=== PATIENT | female | born 1955 | race Caucasian/White ===

== ENCOUNTER 2023-03-16 06:35 | Observation (INO) ==
--- NOTE | 2023-02-15 13:13 | PAT Medication Instructions ---
Medication Instructions Date of Service February 15, 2023 Home Medications Lactobacillus acidophilus 10 billion cell capsule (Probiotic) 10,000 mmu cells PO DAILY Mintran 1 dose PO QAM ascorbic acid (vitamin C) 500 mg tablet (Vitamin C) 500 mg PO DAILY cyclobenzaprine 10 mg tablet 10 mg PO HS PRN Muscle Spasm famotidine 40 mg tablet 40 mg PO QAM ibuprofen 200 mg capsule (Advil Liqui-Gel) 200 mg PO Q6H PRN Pain meloxicam 15 mg tablet 15 mg PO QAM turmeric 400 mg capsule 400 mg PO DAILY MEDICATION INSTRUCTIONS: ASK your surgeon for instructions meloxicam 15 mg tablet 15 mg PO QAM ibuprofen 200 mg capsule (Advil Liqui-Gel) 200 mg PO Q6H PRN Pain STOP taking 2 weeks before surgery Mintran 1 dose PO QAM turmeric 400 mg capsule 400 mg PO DAILY DO NOT take the morning of surgery Lactobacillus acidophilus 10 billion cell capsule (Probiotic) 10,000 mmu cells PO DAILY ascorbic acid (vitamin C) 500 mg tablet (Vitamin C) 500 mg PO DAILY Take morning of surgery With a small sip of water, OTHERWISE NOTHING TO EAT OR DRINK AFTER MIDNIGHT: famotidine 40 mg tablet 40 mg PO QAM Take evening before surgery cyclobenzaprine 10 mg tablet 10 mg PO HS PRN Muscle Spasm Other Notes If you have any questions please call us at [phone] or [phone] or [phone] or [phone]
--- NOTE | 2023-02-22 10:35 | Anesthesiology Consultation ---
Date of Service February 22, 2023 Assessment & Plan (1) Encounter for pre-operative examination: - Infectious disease screening: Per assessment on 02/22/23: No known infectious disease contacts or current infectious disease symptoms. No noted recent Covid positive test result. - Outpatient joint assessment: Pt currently scheduled for inpatient pathway. If surgeon requests review for outpatient joint pathway, patient is an acceptable candidate for outpatient joint program from anesthesia standpoint pending surgeon's office assessment that patient is motivated, has good support and completes [facility] Program preop requirements. Chart Review Chart Review: Acceptable Risk for Surgery and Patient seen in Pre Admission Testing Teaching & Discussion Pre-Anesthesia Teaching/Discussion Notes: Instructed NPO after midnight before surgery,except medications with 15 cc of water. Medication instructions provided according to the PAT guidelines. History Surgery Operation Date: 03/16/23 07:00 Proposed Procedures p Right Total Hip Arthroplasty - Maycol Santiago MD Height/Weight Height: 5 ft 6 in Weight: 73.5 kg Allergies Allergy/AdvReac Type Severity Reaction Status Date / Time No Known Allergies Allergy Verified 02/15/23 09:35 Medications Home Medications Medication Instructions Recorded Confirmed Last Taken Lactobacillus acidophilus 10 10,000 mmu cells PO DAILY 02/15/23 02/15/23 Unknown billion cell capsule (Probiotic) Mintran 1 dose PO QAM 02/15/23 02/15/23 Unknown ascorbic acid (vitamin C) 500 mg 500 mg PO DAILY 02/15/23 02/15/23 Unknown tablet (Vitamin C) cyclobenzaprine 10 mg tablet 10 mg PO HS PRN Muscle Spasm 02/15/23 02/15/23 Unknown ibuprofen 200 mg capsule (Advil 200 mg PO Q6H PRN Pain 02/15/23 02/15/23 Unknown Liqui-Gel) meloxicam 15 mg tablet 15 mg PO QAM 02/15/23 02/15/23 Unknown turmeric 400 mg capsule 400 mg PO DAILY 02/15/23 02/15/23 Unknown omeprazole 40 mg capsule,delayed 40 mg PO DAILY 02/22/23 02/22/23 Unknown release Past Medical History Medical History GERD (gastroesophageal reflux disease) Hip arthritis Exercise / Class Metabolic Activity II 4-5 Yardwork/Stairs/Walk up hill (one FS (no CP, no SOB)) Past Family History Family History Other No family history of adverse response to anesthesia Past Surgical History Surgical History History of toe surgery Left toe surgery (bunion/hammertoe repairs) Hx of hysterectomy Past Anesthesia History No Hx of Anesthesia Complications and No Family Hx of Anesthesia Complications History of PONV No Hx of PONV and No Hx of Motion Sickness Social History Smoking Status: Current some day smoker Smoking cigarettes per day: "social smoker" advised Do You Dip or Chew Tobacco: No Hx Alcohol Use: Yes (once per week) Hx Substance Use: No substance use type: does not use Review of Systems Patient denies chest pain, shortness of breath, dyspnea on exertion, fever, chills, cough, wheezing, palpitations. Physical Exam Vital Signs VITALS BP 118/80 P 85 TEMP 98.1 SP02 96%RA RESP 18 PHYSICAL Full cervical extension range of motion. Full TMJ range of motion. TMD 3 finger breaths Mallampati Score 1 Dentition: intact, + upper front bridge Lungs: clear throughout to auscultation Cardiac: regular rate and rhythm, no murmurs noted Spine: normal Carotid arteries: negative bruit Extremities: no LE edema Lab Results Anesthesia Preop Results Results Anesthesia Widget: WBC 4.47 K/ul (4.8-10.8) L 02/22/23 Hgb 14.9 g/dl (12.0-16.0) 02/22/23 Hct 42.1 % (37.0-47.0) 02/22/23 Plt 252 K/uL (130-400) 02/22/23 Na 138 mmol/L (136-145) 02/22/23 K 3.7 mmol/L (3.5-5.1) 02/22/23 Cl 104 mmol/L (98-107) 02/22/23 CO2 26 mmol/L (21-32) 02/22/23 BUN 14 mg/dl (6-23) 02/22/23 Creat 0.86 mg/dl (0.6-1.2) 02/22/23 Glucose Level 115 mg/dl (70-99(Fasting)) H 02/22/23 PT 10.9 Seconds (9.0-12.0) 02/22/23 PTT 27 Seconds (21-31) 02/22/23 INR 1.0 (0.9-1.1) 02/22/23 Blood Type AB Positive 02/22/23 Antibody Screen NEGATIVE 02/22/23 Testing Electrocardiogram Date: 02/22/23 NSR at 82bpm. "Normal ECG" Chest X-Ray Date: 02/22/23 FINDINGS: The lungs are mildly hyperexpanded with apical predominant is evidence changes. No pneumothorax. No pleural effusions. The heart is normal in size. No focal lung consolidations to suggest a pneumonia. No evidence for pulmonary edema. No acute fractures. IMPRESSION: No acute process.
--- NOTE | 2023-03-13 09:47 | History & Physical Report ---
Date of Service March 13, 2023 Assessment & Plan (1) Arthritis of right hip: 67-year-old relatively healthy female with advanced right hip arthritis. She has failed conservative measures. She like to have her hip fixed. Plan: Proceed with right total hip replacement. The risks and benefits of this proced ure explained the patient clued but not limited to DVT, , infection, neurovascular injury, bleeding problems. Fracture, dislocation, need for revision surgery. The patient understands and desires to proceed. Informed consent is obtained. She is planned to be discharged home with some home health. Her sister is going to come and help in her care. She will follow-up with us 2 weeks postop. Will plan on DVT prophylaxis including thigh-high teds, SCDs, aspirin twice a day. History of Present Illness Chief Complaint: Persistent, progressive right hip pain and discomfort.. Primary Care Provider: Lance Lara, MSN, CERTIFIED SCRUM MASTER . Patient is 67-year-old female who presents now for surgical treatment of her right hip. She has she has little over a year history of increasing right hip pain discomfort is gradually gotten worse over time. Is gotten significantly worse over the past 7 or 8 months. No particular injury. She was even having trouble walking for a while. She saw Dr. De Souza had an injection into her hip several months ago which helped her significantly but is worn off. She describes groin pain and thigh pain rating down to her knee. She has good and bad days but more bad days. She like to have her hip fixed. Allergies Allergy/AdvReac Type Severity Reaction Status Date / Time No Known Allergies Allergy Verified 02/15/23 09:35 Home Medications Medication Instructions Recorded Confirmed Type Lactobacillus acidophilus 10 10,000 mmu cells PO DAILY 02/15/23 02/15/23 History billion cell capsule (Probiotic) Mintran 1 dose PO QAM 02/15/23 02/15/23 History ascorbic acid (vitamin C) 500 mg 500 mg PO DAILY 02/15/23 02/15/23 History tablet (Vitamin C) cyclobenzaprine 10 mg tablet 10 mg PO HS PRN Muscle Spasm 02/15/23 02/15/23 History ibuprofen 200 mg capsule (Advil 200 mg PO Q6H PRN Pain 02/15/23 02/15/23 History Liqui-Gel) meloxicam 15 mg tablet 15 mg PO QAM 02/15/23 02/15/23 History turmeric 400 mg capsule 400 mg PO DAILY 02/15/23 02/15/23 History omeprazole 40 mg capsule,delayed 40 mg PO DAILY 02/22/23 02/22/23 History release Past Med/Surg History Medical History (Updated 03/13/23 @ 09:50 by Maycol Santiago MD) Arthritis of right hip GERD (gastroesophageal reflux disease) Hip arthritis Surgical History History of toe surgery Left toe surgery (bunion/hammertoe repairs) Hx of hysterectomy Family History Other No family history of adverse response to anesthesia Social History Smoking Status: Current some day smoker Tobacco Type: Cigarettes Cigarettes Per Day: "social smoker" advised; Second Hand Exposure: No; Do You Dip or Chew Tobacco: No; Hx Alcohol Use: Yes (once per week) Hx Substance Use: No Preferred Language: Vietnamese Communication Ability: Effective Head Of Conservation Required: No Beliefs That Will Affect Care: None Current Living Situation: Significant Other Feels Safe at Home: Yes Assistive Devices: None Review of Systems All systems reviewed & are unremarkable except as noted in HPI & below. Physical Exam . Physical examination reveals a pleasant middle-age female but looks in pretty good health. Examination of the right hip the patient walks with slightly antalgic gait. Leg lengths appear pretty equal. She got pain and stiffness with hip motion. Internal rotation neutral at best. Recreates pain. Negative straight leg raise. No knee effusion. She is neurologically intact. Constitutional WD/WN, vitals as above Neck trachea midline, no thyromegaly Respiratory normal respiratory effort, lungs clear to auscultation Cardiovascular RRR, no murmur, no edema Gastrointestinal (Abdomen) normal bowel sounds, soft, nontender, no hepatosplenomegaly Results & Data Results & Data Laboratory Results . Diagnostic Findings . X-rays of the right hip were reviewed. Shows advanced right hip arthritis. She got a little bit about remaining joint space but fairly concentric loss of the joint space with osteophytes. She got some cystic changes in the femoral head and acetabulum. PG Care Time/CCT Total # of Minutes Spent Total Time Spent with Patient: Total time spent is greater than 50% in coordination of care (as documented) at patient's floor/unit and/or counseling patient: Coding Level of Care Code None Diagnoses Arthritis of right hip M16.11
[~2023-03-16 06:35] MED LIST: ROPIVACAINE 0.5% 5 MG/ML 30 ML VIAL ONE
--- NOTE | 2023-03-16 06:54 | History & Physical Bridge Note ---
Date of Service March 16, 2023 History & Physical Bridge Note I have examined the patient, reviewed the History & Physical and in the interval since the performance of the History & Physical I have noted the following changes of clinical significance: no changes noted
[2023-03-16] MEDS: LR 500ML BOLUS, THEN 15ML/HR IV SCH (07:45)
[2023-03-16] MEDS: ACETAMINOPHEN 500 MG TAB PO SCH ×2 (07:46→14:23)
[2023-03-16] MEDS: LR 60ML/HR IV SCH (07:46)
[2023-03-16] MEDS: METOCLOPRAMIDE HCL 10 MG TABLET PO SCH (07:47)
[2023-03-16] MEDS: FAMOTIDINE 20 MG TAB PO SCH (07:47)
[2023-03-16] MEDS: CeleBREX 200 MG CAP PO SCH (07:47)
[2023-03-16] MEDS: Scopolamine 1 MG TDSY TD SCH (07:48)
[2023-03-16] MEDS: dexAMETHasone**PF** 10 MG/ML VIAL IV SCH (07:48)
[2023-03-16] MEDS ORDERED: fentaNYL citrate PF 100 MCG/2 ML VIAL ONE (08:00)
[2023-03-16] MEDS ORDERED: MIDAZOLAM HCL 1 MG/ML 2ML VIAL ONE (08:00)
[2023-03-16] MEDS ORDERED: NALOXONE HCL 0.4 MG/1 ML VIAL/CARP IV PRN ×2 (08:17→11:21)
[2023-03-16] MEDS ORDERED: MoRPHine SULFATE 2 MG/ML CARP IV PRN (08:17)
[2023-03-16] MEDS ORDERED: NALOXONE HCL 0.08 MG in SYRINGE 1.8 ML IV PRN (08:17)
[2023-03-16] MEDS ORDERED: KETOROLAC 30 MG/ML VIAL IV PRN (08:17)
[2023-03-16] MEDS ORDERED: NALBUPHINE HCL 5 MG in SYRINGE 0 ML IV PRN (08:17)
[2023-03-16] MEDS ORDERED: HYDROmorphone INJ 0.5 MG/0.5 ML SYR IV PRN (08:17)
[2023-03-16] MEDS ORDERED: LACTATED RINGER'S 500 ML IV PRN (08:17)
[2023-03-16] MEDS ORDERED: ePHEDrine sulfate 50 MG/ML AMP IV PRN (08:17)
[2023-03-16] MEDS ORDERED: NALOXONE HCL 1 MG in SODIUM CHLORIDE 0.9% 1,000 ML IV PRN (08:17)
[2023-03-16] MEDS ORDERED: ONDANSETRON INJ 2 MG/ML 2 ML VIAL IV PRN ×2 (08:17→11:21)
[2023-03-16] MEDS ORDERED: diphenhydrAMINE 50 MG/ML VIAL IV PRN (08:17)
[2023-03-16] MEDS ORDERED: MoRPHine SULFATE PF 1 MG/ML 10 ML AMP/VIAL ONE (08:22)
[2023-03-16] MEDS ORDERED: NO NARCOTICS OR SEDATIVES SCH (08:30)
[2023-03-16] MEDS ORDERED: DC INTRASPINAL MORPHINE SCH (08:30)
[2023-03-16] MEDS: TRANEXAMIC ACID 1,000 MG **IV Pre-op IV SCH (08:37)
[2023-03-16] MEDS: ceFAZolin 2000MG 2,000 MG/15 ML SYR IV SCH (08:59)
[2023-03-16] MEDS ORDERED: PROPOFOL IV EMULSION 10 MG/ML 20 ML VIAL IV ONE (09:27)
[2023-03-16] MEDS: BUPIVACAINE/EPINEPHRINE 0.5% MPF 1:200,000 30 ML VIAL ONE (09:43)
[2023-03-16] MEDS ORDERED: LIDOCAINE 2% 2 ML VIAL/AMP(20MG/ML) INFIL ONE (09:54)
--- NOTE | 2023-03-16 10:30 | Operative Report ---
PG Post Operative Report Pre & Post Diagnosis Operation Date: 03/16/23 08:50 Pre-Op Diagnosis: Right Hip Degenerative Joint Disease Post-Op Diagnosis: Right Hip Degenerative Joint Disease I identified the patient and participated in the time-out.: Yes Procedure Operation Date: 03/16/23 08:50 Actual Procedures p Right Total Hip Arthroplasty, Uncemented(Right) - Maycol Santiago MD Surgeon Maycol Santiago MD [employer] Terry Nunn PA-C Estimated Blood Loss 150 Findings Consistent with Post-Op Diagnosis Operative findings revealed advanced right DJD. She had grade 4 [id number] disease. She had a pretty significant hip joint effusion. Not much in the way of osteophyte formation. Specimens Right femoral head sent for pathology. Anesthesia Type Spinal MAC Complications none Disposition Accompanied Patient To Recovery: No Indications Patient is 67-year-old female is had a several year history of increasing right hip pain discomfort got significantly worse over the past 6 months. She failed conservative measures. X-rays show progressive hip arthritis. She elected proceed with total hip arthroplasty. Description of Procedure Operative implants consist of: 1 Biomet G7 size 50 mm acetabular shell. 2. [place] hole eliminator. 3. 6.5 cancellous acetabular screws 1 at 35 mm in length and 125 mm length. 4. Highly cross-linked polyethylene liner with a 50 mm outer diameter and 36 mm inner diameter. 5. DePuy Corail size 10 KLA femoral stem. 6. +5/36 mm ceramic articular ball. The patient was taken the operating, identified, placed on the operating table in the supine position. All contact areas were appropriately padded. IV antibiotics arrived by anesthesia team. A spinal anesthetic had been implemented holding area. A Bunn catheter was placed. The patient was then placed in the left lateral decubitus position. An axillary roll was placed. Distal Birkett position was used for positioning. The right hip and leg were then prepped and draped in usual sterile fashion. A posterolateral approach to the right hip was then performed to a curvilinear incision centered over the greater trochanter. Sharp dissection Through subcut aneous tissue down of the IT band gluteal fascia. The IT band gluteal fascia was sized longitudinally in line with skin incision. The underlying greater bursa was excised. The piriformis and external rotators along with hip joint capsule were then released from the posterior aspect hip as a single layer. Great care was taken throughout the procedure protect the sciatic nerve at all times. Hip was internally rotated and dislocated. A femoral neck osteotomy cut was made with Final Cut approximately 12 mm above the lesser trochanter. Femoral head was removed and sent for pathology. The femur was retracted anteriorly and attention was then drawn the acetabulum. The acetabular labrum was excised. The pulmonary fat was excised. Sequential reaming the acetabular was then performed again with size 43 and progressing up to 49. I reamed a little bit with a 50 reamer and then placed a 50 mm Biomet G7 acetabular shell in about 40 degrees lateral opening and 20 degrees of anteversion. Was fixed with two 6.5 cancellous acetabular screws. A trial liner was placed. Attention drawn the femur. The proximal femur was entered with a Covagen cutter followed by canal finder. I broached beginning size 8 and progressing up to 10. We had excellent fitted to 10. I did not think I could fit the 11 in. Calcar reamer was used smoothed off the calcar. We then trialed the hip and the +5 articular ball provide full stability in full extension and external rotation and flexion to 90 degrees and internal rotation over 50 degrees. Her soft tissues are still a bit lax that she had quite a bit of offset but her hip was stable. Leg lengths seemed equal. I elected to use these implants. All trial implants were removed. [place] block hacker was placed. Highly cross- linked polyethylene liner was placed. A size 10 KLA femoral stem was impacted in position. +5/36 mm ceramic articular ball was placed. Hip was located and once again found to be stable. Attention drawn toward closing. The wound was irrigated copious also pulsatile lavage solution. I did inject locally with 60 cc of percent Marcaine with epinephrine. The posterior capsule and external rotators then repaired through drill holes in the posterior trochanter with #2 Tycron suture. The IT band gluteal fascia then closed with #1 PDS suture running fashion subcutaneous tissues then closed with 2 layers with the deep layer #1 Vicryl suture in the subcutaneous tissues with 2-0 Dexon suture in a buried interrupted fashion. Skin was closed skin mao. Leg was then cleaned and dried and sterile Prevena VAC dressing was applied. The patient was then transferred to the recovery room in stable condition. The patient tolerated the procedure well and there were no complications. Terry Nunn, my physician operations administrative assistant, was present for the entire procedure. His assistance was essential and required for appropriate patient positioning, prepping and draping, surgical exposure, performing the technical details of the operation, placement the implants, closure of the wound, and placement of the sterile bandage. I attest to the content of the Intraoperative Record and any orders documented therein. Any exceptions are noted below.
--- NOTE | 2023-03-16 10:51 | Anesthesiology Progress Note ---
Date of Service March 16, 2023 Anesthesia Post Procedure Vital Signs Vital Signs: Temp Pulse Pulse Resp BP Pulse Ox O2 Del Method 03/16/23 10:35 81 14 123/66 100 Oxymask 03/16/23 10:25 85 15 110/69 100 Oxymask 03/16/23 10:16 36.1 C L 87 14 113/65 99 Oxymask 03/16/23 07:31 36.6 C 78 20 137/91 97 Room Air O2 Flow Rate 03/16/23 10:35 3 03/16/23 10:25 5 03/16/23 10:16 5 03/16/23 07:31 Transfer of Care Handoff Completed per policy Notes Mental Status: alert / awake / arousable and participated in evaluation Patient Amnestic to Procedure: Yes Nausea / Vomiting: adequately controlled Pain: adequately controlled Airway Patency, RR, SpO2: stable & adequate BP & HR: stable & adequate Hydration State: stable & adequate Anesthetic Complications: no major complications apparent and Pt Satisfied with anesthetic care
[2023-03-16] MEDS ORDERED: ALUMINUM/MAGNESIUM SUSP 30 ML UDC PO PRN (11:21)
[2023-03-16] MEDS ORDERED: CYCLOBENZAPRINE HCL 10 MG TAB PO PRN (11:21)
[2023-03-16] MEDS ORDERED: bisacodyL 10 MG SUPP PR PRN (11:21)
[2023-03-16] MEDS ORDERED: METOCLOPRAMIDE HCL INJ 5 MG/ML 2 ML VIAL IV PRN (11:21)
[2023-03-16] MEDS ORDERED: MAGNESIUM HYDROXIDE SUSP 30 ML UDC PO PRN (11:21)
[2023-03-16] MEDS: SODIUM CHLORIDE 0.9% 1,000 ML IV SCH ×2 (11:46→12:07)
[2023-03-16] MEDS: MoRPHine SULFATE PF 1 MG/ML 10 ML AMP/VIAL INT SPINAL ONE (11:47)
--- NOTE | 2023-03-16 12:54 | XRay Report ---
XR hip 1V RT w pelvis CLINICAL HISTORY: Postoperative evaluation. COMPARISON: Right hip radiographs December 14, 2022. FINDINGS: Alignment of the total right hip arthroplasty is anatomic. There is no periprosthetic frac ture or unexpected radiopaque foreign body. There are skin mao. There is an acetabular screw. IMPRESSION: Expected findings following total right hip arthroplasty. ACT 112: Negative or not required by law. Electronically signed by: Aki Quan M.D. 03/16/2023 12:53 PM
[2023-03-16] MEDS ORDERED: ACETAMINOPHEN 500 MG TAB PO SCH (14:00)
[2023-03-16] MEDS: TRANEXAMIC ACID / 0.7% NACL 1,000 MG/100 ML BAG IV SCH (16:35)
[2023-03-16] MEDS: ceFAZolin 1000MG 1,000 MG/7.5 ML SYR IV SCH (16:35)
[2023-03-16] MEDS: ASCORBIC ACID 500 MG TAB PO SCH (16:36)
[2023-03-16] MEDS: Scopolamine CHECK PATCH PLACEMENT SCH (16:37)
[2023-03-16 19:28] VITALS: RESP 18
[2023-03-16] MEDS: DOCUSATE SODIUM 100 MG CAP PO SCH (20:17)
[2023-03-16] MEDS: SENNA 8.6 MG TAB PO SCH ×2 (20:17)
[2023-03-16] MEDS: ASPIRIN 81 MG ECTAB PO SCH (20:17)
[2023-03-17] MEDS: KETOROLAC 30 MG/ML VIAL IV SCH (01:31)
[2023-03-17] MEDS ORDERED: traMADol HCL 50 MG TABLET PO PRN (02:19)
[2023-03-17] MEDS ORDERED: diphenhydrAMINE Capsule 25 MG CAP PO PRN (02:19)
[2023-03-17] MEDS ORDERED: HYDROmorphone INJ 0.5 MG/0.5 ML SYR IV PRN (02:19)
[2023-03-17 04:05] VITALS: TEMP 98.2
[2023-03-17 05:32] VITALS: O2SAT 95
[2023-03-17 06:35] LABS: Basophils # (auto) 0.02 K/uL (0.00-0.20); Basophils % (auto) 0.2 %; Eosinophils # (auto) 0.01 K/uL (0.00-0.50); Eosinophils % (auto) 0.1 %; Hemoglobin 11.9 g/dl (12.0-16.0); Immature Granulocytes # (auto) 0.05 K/uL (0.01-0.20); Immature Granulocytes % (auto) 0.5 %; Lymphocytes # (auto) 1.31 K/uL (1.20-3.40); Mean Corpuscular Hemoglobin 31.6 pg (25.0-34.0); Mean Corpuscular Volume 90.4 fL (80.0-100.0); Mean Platelet Volume 10.3 fL (9.4-12.4); Monocytes # (auto) 0.72 K/uL (0.11-0.59); Monocytes % (auto) 7.2 %; Neutrophils # (auto) 7.93 K/uL (1.40-6.50); Platelet Count 186 K/uL (130-400); RDW Coefficient of Variation 12.4 % (11.5-14.5); RDW Standard Deviation 40.9 fL (36.4-46.3); Red Blood Count 3.76 M/uL (4.20-5.40); White Blood Count 10.04 K/ul (4.8-10.8)
[2023-03-17 07:03] LABS: BUN Creatinine Ratio 21.1 (10-20); Calcium 8.4 mg/dl (8.6-10.3); Creatinine Clr Calc Pharmacy 73.7 ml/min; Est GFR (African American) 94.1 ml/min; Est GFR (Non-African American) 81.2 ml/min
[2023-03-17 07:58] VITALS: BP 119/77; PULSE 60
[2023-03-17] MEDS: dexAMETHasone 10 MG in SYRINGE 0 ML IV SCH (08:11)
[2023-03-17] MEDS: ADVANCED PROBIOTIC 1250 MG CAPSULE PO SCH (08:13)
[2023-03-17] MEDS: PANTOprazole 40 MG TAB PO SCH (08:13)
[2023-03-17] MEDS ORDERED: ASCORBIC ACID 500 MG TAB PO SCH (09:00)
[2023-03-17] MEDS ORDERED: NON-FORMULARY MEDICATION (Turmeric 400 mg Capsule) PO SCH (09:00)
[2023-03-17] MEDS ORDERED: [UNRECOGNIZED DRUG - OTHER] PO SCH (09:00)
[2023-03-17] MEDS: MULTIVITAMIN TAB PO SCH (11:40)
--- NOTE | 2023-03-17 12:54 | Surgery Progress Note ---
Date of Service March 17, 2023 Assessment & Plan (1) Status post right hip replacement: Plan: 67-year-old female postop day 1 from right hip replacement. She is doing well. Pain is controlled. Therapy went well. She is hoping to go home. Plan: 1. DVT prophylaxis including thigh-high teds, SCDs, aspirin twice a day. 2. PT/OT. Weight-bear as tolerated. Right total hip protocol. 3. Pain control doing okay with current pain regimen. 4. Disposition. Plan is to discharge her to home. She will have home health. Admission and Anticipated Discharge Date Admission Date: March 16, 2023 Subjective 67-year-old female postop day 1 from right total hip replacement. She is doing well. Therapy went well. Pain is controlled. She is hoping to go home today. Physical Exam Physical Exam: Physical exam shows a pleasant middle-age female. She is sitting up in her bedside chair looks comfortable. Examination of the right hip reveals a Prevena VAC dressing in place. Leg lengths are equal. Thigh is soft and supple. She is neurologically intact. She can dorsiflex and plantarflex her foot appropriately. Neck: trachea midline, no thyromegaly Respiratory: normal respiratory effort, lungs clear to auscultation Cardiovascular: RRR, no murmur, no edema Gastrointestinal (Abdomen): normal bowel sounds, soft, nontender, no hepatosplenomegaly Results & Data Vital Signs (Past 12 Hours) Vital Signs Temp Pulse Resp BP Pulse Ox O2 Del Method 03/17/23 07:57 36.8 C 60 18 119/77 95 Room Air 03/17/23 05:27 18 95 03/17/23 04:27 18 94 03/17/23 03:27 18 96 03/17/23 03:00 36.8 C 85 18 124/75 96 Room Air 03/17/23 02:27 18 94 03/17/23 01:27 18 95 Laboratory Results Hemoglobin is 11.9. Hematocrit is 34.1. Electrolytes are stable. PG Care Time/CCT Total # of Minutes Spent Total Time Spent with Patient: Total time spent is greater than 50% in coordination of care (as documented) at patient's floor/unit and/or counseling patient: Coding Level of Care Code None Diagnoses Status post right hip replacement Z96.641
== END 2023-03-17 13:35 | disposition home health service (06) ==
LOC: ASU 06:35 → 3N 06:35